=== PATIENT | male | born 1975 | race Caucasian/White ===

== ENCOUNTER 2019-03-20 18:37 | Emergency (ER) | payer OTHER ==
[2019-03-20 18:43] VITALS: BP 144/86; PULSE 77; TEMP 98.2; BMI 32.3
--- NOTE | 2019-03-20 18:44 | PDOC ---
Rapid Medical Evaluation Time Seen by Provider: 03/20/19 18:40 Medical Evaluation: 03/20/19 18:41 Pt c/o: left facial pain since this am, concerned about insect bite to post rt neck on tuesday if it is infected, no hx dm Pt on brief exam: no hypersensitivity to left face, no decreased facial expression, noted crusted flat small wound to post rt neck, no vesicles, Pt ordered for: none Pt to proceed to ED Discharge Disposition - Diagnosis Cellulitis - Discharge Dispostion Disposition: HOME Condition at time of disposition: Stable - Prescriptions Prescriptions: Cephalexin [Keflex] 500 mg PO QID #40 capsule Cephalexin Monohydrate [Keflex -] 500 mg PO Q6H #40 capsule Sulfamethoxazole/Trimethoprim [Bactrim Ds -] 1 tab PO BID #14 tablet Sulfamethoxazole/Trimethoprim [Bactrim Ds -] 1 tab PO BID #14 tablet - Referrals Referrals: Arun Noguera MD [Staff Physician] - ON STAFF,NOT [Primary Care Provider] - - Patient Instructions Additional Instructions: Return to the emergency room for worsening symptoms. Please follow-up with general surgery in 1 to 2 days for further evaluation and treatment options. Please take the antibiotics as directed. Please follow-up with general surgery in 1 to 2 days without fail. - Post Discharge Activity
--- NOTE | 2019-03-20 19:53 | PDOC ---
History of Present Illness - General Chief Complaint: Pain Stated Complaint: PAIN ON LEFT SIDE OF FACE Time Seen by Provider: 03/20/19 18:40 - History of Present Illness Initial Comments: 03/20/19 19:51 43-year-old male without comorbidities presents for evaluation of a irritating area on his neck over the last 4 days. He believes he is got bitten by a spider no systemic symptoms Past History - Past Medical History Allergies/Adverse Reactions: Allergies Allergy/AdvReac Type Severity Reaction Status Date / Time No Known Allergies Allergy Verified 03/20/19 18:43 Home Medications: Ambulatory Orders Cephalexin [Keflex] 500 mg PO QID #40 capsule 03/20/19 Sulfamethoxazole/Trimethoprim [Bactrim Ds -] 1 tab PO BID #14 tablet 03/20/19 COPD: No - Psycho Social/Smoking Cessation Hx Smoking History: Never smoked Review of Systems - Review of Systems Constitutional: No: Fever Integumentary: Yes: Erythema *Physical Exam - Vital Signs Last Vital Signs Temp Pulse Resp BP Pulse Ox 98.2 F 77 18 144/86 98 03/20/19 18:39 03/20/19 18:39 03/20/19 18:39 03/20/19 18:39 03/20/19 18:39 - Physical Exam Comments: 03/20/19 19:52 There is a circular area of induration with minimal erythema no fluctuance with a crusted center on the occipital scalp there is no surrounding sensitivity there is firmness Medical Decision Making - Medical Decision Making 03/20/19 19:52 This may represent an early cellulitis from a spider bite we will treat with Bactrim and Keflex with general surgery follow-up Discharge - Discharge Information Problems reviewed: Yes Clinical Impression/Diagnosis: Cellulitis Clinical Impression/Diagnosis: (Ruled Out): Facial pain Condition: Stable Disposition: HOME - Admission No - Additional Discharge Information Prescriptions: Cephalexin [Keflex] 500 mg PO QID #40 capsule Sulfamethoxazole/Trimethoprim [Bactrim Ds -] 1 tab PO BID #14 tablet - Follow up/Referral Referrals: ON STAFF,NOT [Primary Care Provider] - Arun Noguera MD [Staff Physician] - - Patient Discharge Instructions Additional Instructions: Return to the emergency room for worsening symptoms. Please follow-up with general surgery in 1 to 2 days for further evaluation and treatment options. Please take the antibiotics as directed. Please follow-up with general surgery in 1 to 2 days without fail. - Post Discharge Activity
== END 2019-03-20 20:02 | disposition home or self-care (01) ==
LOC: JER 18:37 → JERFT 18:37
DX: S00.06XA Insect bite (nonvenomous) of scalp, initial encounter (principal); L03.119 Cellulitis of unspecified part of limb; W57.XXXA Bitten or stung by nonvenomous insect and other nonvenomous arthropods, initial encounter; Y93.89 Activity, other specified; Y92.89 Other specified places as the place of occurrence of the external cause; Y99.8 Other external cause status
CPT/HCPCS: 99281-25

== ENCOUNTER 2019-06-26 00:03 | Emergency (ER) | payer OTHER ==
[2019-06-26 01:15] VITALS: BMI 31.6
[2019-06-26] MEDS ORDERED: LACTATED RINGERS SOLUTION 1000 ML INFUS.BAG IV ONE ×2 (02:01→04:17)
[2019-06-26] MEDS ORDERED: ONDANSETRON 4 MG/2 ML VIAL IVPB ONE (02:01)
[2019-06-26] MEDS ORDERED: ONDANSETRON 4 MG/2 ML VIAL ONE ×2 (02:04→02:08)
--- NOTE | 2019-06-26 02:10 | PDOC ---
Attending Attestation - Resident Resident Name: LandrumQamar - ED Attending Attestation I have performed the following: I have examined & evaluated the patient, The case was reviewed & discussed with the resident, I agree w/resident's findings & plan - HPI HPI: 06/26/19 04:41 see resident hpi - Physicial Exam PE: 06/26/19 04:41 agree with resident exam - Medical Decision Making 06/26/19 04:41 44-year-old male with abdominal cramping vomiting and diarrhea after possibly eating questionable food Patient's is currently being seen for similar complaints Labs suggest hemoconcentration/dehydration Patient will receive 3 L of IV fluid normal saline, antiemetics If passes p.o. challenge will plan for DC
[2019-06-26 02:33] LABS: BASO % 0.2 % (0-2.0); EOS % 0.3 % (0-4.5); HEMATOCRIT 51.8 % (35.4-49); HEMOGLOBIN 17.3 GM/dL (11.7-16.9); LYMPH % 4.8 % (8-40); MCH 29.8 pg (25.7-33.7); MCHC 33.3 g/dl (32.0-35.9); MEAN CELL VOLUME 89.3 fl (80-96); MEAN PLT VOLUME 8.6 fl (7.5-11.1); MONO % 6.8 % (3.8-10.2); NEUT % 87.9 % (42.8-82.8); PLATELET COUNT 267 K/MM3 (134-434); WHITE BLOOD COUNT 9.2 K/mm3 (4.0-10.0)
--- NOTE | 2019-06-26 02:37 | PDOC ---
History of Present Illness - General Chief Complaint: Nausea/Vomiting Stated Complaint: VOMITING Time Seen by Provider: 06/26/19 01:44 History Source: Patient Exam Limitations: No Limitations - History of Present Illness Initial Comments: HPI: 44 y/o male presenting to [facility] ER complaining of sudden onset of persistent nausea, vomiting, and diarrhea. Described as watery. No blood noted. Started at approx. 9pm. Associated chills and diffuse intermittent abdominal cramping, but denies localizing pain. was admitted to this facility for similar symptoms. Denies fevers, chest pain, or SOB. Did not take any OTC medications prior to arrival. No recent travel or abx usage. Ate lunch at [employer]. Medical Hx: - Denies past medical history. Denies prescription medications. Surgical Hx: - Pt denies past surgical history. Review of Systems: In addition to that documented in the HPI above, the additional ROS was obtained : Constitutional- Denies fevers ENMT- Denies sore throat CV- Denies chest pain Resp- Denies SOB GI- Per HPI - Denies dysuria, hematuria, or urinary frequency Physical Examination: Vital signs and nursing notes reviewed. Constitutional- Puny appearing adult male in no acute distress. Found sitting upright on vertical chair. Answered all questions appropriately and completely. Head- Normocephalic. No obvious external signs of trauma. Eyes- Conjunctiva moist and not injected. Oral- Moist mucosal membranes. Normal appearing dentition. Neck- Supple, trachea is midline. Cardiovascular / Chest- Regular rate and regular rhythm. No murmur, rubs, clicks , or gallops. Peripheral pulses- radial pulses full. Respiratory- Breathing unlabored. Equal chest rise and fall. Clear to auscultation bilaterally. No stridor, no wheezing, no rhonchi. Gastrointestinal- abdomen is soft, non-tender, non-distended. No hepatosplenomegaly. No pulsatile masses. No overlying skin lesions or obvious signs of trauma. Neuro- Alert and oriented x4. Moving all four extremities spontaneously. Gait normal. Skin- Warm, dry, and intact. Psych- Affect- appropriate. Mood- normal. Speech was non-labored, non- pressured. MDM: 44 y/o male presenting with sudden onset of perfuse nausea, vomiting, and diarrhea. sick with similar symptoms. Afebrile. Vitals unremarkable for hypotension or tachycardia. Physical exam as described above. No acute abdominal signs. Will obtain CBC and CMP. Ordered Zofran and LR IVFB. Reviewed laboratory data. Suspect likely dehydration causing hemoconcentration and mild ABRAHAM. 26 Jun 2019 04:18 AM Pt reassessed. Found sleeping. Easily arousable. No further vomiting. Started third liter of LR. Discussed physical exam findings and laboratory data with pt. Answered all questions. Provided return precautions. pt expressed verbal understanding and agreement with plan to discharge home with outpatient follow up. Provided copies of todays results. Prescribed Zofran. Qamar Landrum M.D., PGY2 Emergency Medicine Resident Past History - Past Medical History Allergies/Adverse Reactions: Allergies Allergy/AdvReac Type Severity Reaction Status Date / Time No Known Allergies Allergy Verified 06/26/19 00:37 Home Medications: Ambulatory Orders Cephalexin Monohydrate [Keflex -] 500 mg PO Q6H #40 capsule 03/20/19 Cephalexin [Keflex] 500 mg PO QID #40 capsule 03/20/19 Sulfamethoxazole/Trimethoprim [Bactrim Ds -] 1 tab PO BID #14 tablet 03/20/19 Sulfamethoxazole/Trimethoprim [Bactrim Ds -] 1 tab PO BID #14 tablet 03/20/19 Ondansetron [Zofran Odt -] 4 mg SL TID PRN #10 od.tablet 06/26/19 COPD: No - Psycho Social/Smoking Cessation Hx Smoking History: Never smoked Hx Alcohol Use: No Drug/Substance Use Hx: No *Physical Exam - Vital Signs Last Vital Signs Temp Pulse Resp BP Pulse Ox 98.1 F 87 18 121/66 98 06/26/19 00:05 06/26/19 00:05 06/26/19 00:05 06/26/19 00:05 06/26/19 00:05 ED Treatment Course - LABORATORY CBC & Chemistry Diagram: 06/26/19 02:19 06/26/19 02:19 - ADDITIONAL ORDERS Additional order review: 06/26/19 02:19 RBC 5.80 H MCV 89.3 MCHC 33.3 RDW 14.0 MPV 8.6 Neutrophils % 87.9 H Lymphocytes % 4.8 L Monocytes % 6.8 Eosinophils % 0.3 Basophils % 0.2 - Medications Given in the ED: ED Medications Discontinued Medications Generic Name Dose Route Start Last Admin Trade Name Freq PRN Reason Stop Dose Admin Lactated Ringer's 2,000 ml 06/26/19 02:01 06/26/19 02:15 Lactated Ringers Solution IV 06/26/19 02:02 2,000 ml ONCE ONE Administration Ondansetron HCl 8 mg 06/26/19 02:01 06/26/19 02:15 Zofran Injection IVPB 06/26/19 02:02 8 mg ONCE ONE Administration Discharge - Discharge Information Problems reviewed: Yes Clinical Impression/Diagnosis: Nausea vomiting and diarrhea Condition: Fair Disposition: HOME - Admission No - Additional Discharge Information Prescriptions: Ondansetron [Zofran Odt -] 4 mg SL TID PRN #10 od.tablet PRN Reason: Nausea / Vomiting - Follow up/Referral Referrals: ON STAFF,NOT [Primary Care Provider] - - Patient Discharge Instructions Patient Printed Discharge Instructions: DI for Diarrhea and Traveler's Diarrhea -- Adult, DI for Vomiting -- Adult, Ondansetron Additional Instructions: You were seen today for nausea, vomiting, and diarrhea. You likely have either food poisoning or a viral gastroenteritis. You can take over the counter Tylenol or Advil as needed for pain. Take as directed on the package insert. Do not exceed the recommended dosage. Please continue to drink fluids (water, Gatorade, etc) to stay hydrated. Mix sugary drinks with water as the sugar can further dehydrate you. You can try and eat a small bland meal (crackers, etc) after you have stopped vomiting for 12 hours. I have sent a prescription for Zofran to your pharmacy. Take as directed on the package insert. Do not take more than the recommended dose. An informational leaflet about the medication is attached. Return to the emergency room if your vomiting becomes much worse and you are no longer able to keep fluids down, if you begin to feel dehydrated, if you develop a fever, pass out, become disoriented, begin vomiting blood, have bloody diarrhea, or you feel like you need additional emergency care. You can also see your primary care doctor if your symptoms do not improve. Print Language: MALAGASY - Post Discharge Activity Work/Back to School Note: Back to Work
[2019-06-26 03:02] LABS: ALBUMIN 4.3 g/dl (3.4-5.0); BILIRUBIN,TOTAL 0.6 mg/dL (0.2-1); BLOOD UREA NITROGEN 20.1 mg/dL (7-18); CALCIUM 9.5 mg/dL (8.5-10.1); CREATININE 1.4 mg/dL (0.55-1.3); POTASSIUM 4.8 mmol/L (3.5-5.1); TOT PROT 8.6 g/dl (6.4-8.2)
[2019-06-26 05:41] VITALS: BP 120/72; PULSE 90; TEMP 98.4
== END 2019-06-26 05:57 | disposition home or self-care (01) ==
LOC: JER 00:03
PROC: 3E033GC Introduction of Other Therapeutic Substance into Peripheral Vein, Percutaneous Approach (ICD-10-PCS; principal; 2019-06-26)
DX: R11.2 Nausea with vomiting, unspecified (principal)
CPT/HCPCS: 36415; 80053; 85025; 96374; 99284-25

== ENCOUNTER 2023-10-15 20:10 | Emergency (ER) | payer OTHER ==
[2023-10-15 20:15] VITALS: RESP 20; BMI 32.3
[2023-10-15] MEDS ORDERED: morphine CARPU-JECT 4 MG/1 ML DISP.SYRIN IVPUSH ONE (20:37)
[2023-10-15] MEDS ORDERED: morphine SULFATE 4 MG/ML VIAL ONE (20:43)
[2023-10-15] MEDS: morphine CARPU-JECT 2 MG/1 ML DISP.SYRIN IM ONE (20:47)
[2023-10-15] MEDS: LIDOCAINE HCL 2% JELLY 10 ML CARTRIDGE UR ONE (20:47)
[2023-10-15 20:55] LABS: EPI CELLS 10 /uL (0-25.1); HYALINE CASTS 0 /uL (0-3.1); PH,URINE 7.5 (5.0-8.0); URINE APPEARANCE CLEAR; URINE BACTERIA 1 /uL (0-1359); URINE BILIRUBIN NEGATIVE (NEGATIVE); URINE COLOR YELLOW; URINE GLUCOSE (UA) NEGATIVE (NEGATIVE); URINE KETONE NEGATIVE (NEGATIVE); URINE LEUK ESTERASE NEGATIVE (NEGATIVE); URINE NITRITE NEGATIVE (NEGATIVE); URINE PROTEIN 1+ (NEGATIVE); URINE RBC 1499 /uL (0-23.9); URINE WBC 12 /uL (0-25.8)
[2023-10-15 21:01] VITALS: BP 147/88; PULSE 78; TEMP 98.2
== END 2023-10-15 22:22 | disposition home or self-care (01) ==
LOC: JER 20:10
PROC: 0T9B70Z Drainage of Bladder with Drainage Device, Via Natural or Artificial Opening (ICD-10-PCS; principal; 2023-10-15)
PROC: 3E023GC Introduction of Other Therapeutic Substance into Muscle, Percutaneous Approach (ICD-10-PCS; 2023-10-15)
DX: N40.1 Benign prostatic hyperplasia with lower urinary tract symptoms (principal); R33.8 Other retention of urine; R00.0 Tachycardia, unspecified
CPT/HCPCS: 81003; 87086; 99284-25